=== PATIENT | female | born 1965 | race Caucasian/White ===

== ENCOUNTER 2017-02-17 09:43 | Inpatient (IN) | payer BC ==
[~2017-02-17] VITALS: Ht 162.6 cm; Wt 69.7 kg
[2017-02-17] VITALS (26 sets, daily range): BP systolic 110–137; BP diastolic 54–77; PULSE 67–106; RESP 15–22; Ht 162.6 cm; Wt 69.7 kg
[2017-02-17] MEDS ORDERED: CYCL-319 PO (10:23)
[2017-02-17] MEDS ORDERED: RABE20TA27 PO (10:23)
[2017-02-17] MEDS ORDERED: HYDR-902 PO (10:24)
[2017-02-17] MEDS ORDERED: DOCU100T PO (10:24)
[2017-02-17] MEDS ORDERED: LACTATED RINGER'S 1,000 ML IV* SCH (11:00)
[2017-02-17] MEDS ORDERED: CEFAZOLIN 2 GM/50 ML (PMX) 50 ML IVPB ONE (11:00)
[2017-02-17] MEDS ORDERED: ONDANSETRON 4 MG INJ ONE (11:52)
[2017-02-17] MEDS ORDERED: NEOSTIGMINE 3 MG/3 ML SYRINGE ONE (11:52)
[2017-02-17] MEDS ORDERED: CEFAZOLIN 1 GM INJ ONE (11:52)
[2017-02-17] MEDS ORDERED: GLYCOPYRROLATE 0.4 MG INJ ONE (11:52)
[2017-02-17] MEDS ORDERED: MIDAZOLAM 1 MG/ML 2 ML INJ ONE (11:52)
[2017-02-17] MEDS ORDERED: PROPOFOL 20 ML ONE (11:52)
[2017-02-17] MEDS ORDERED: FENTAnyl 50 MCG/ML VIAL ONE (11:52)
[2017-02-17] MEDS ORDERED: ROCURONIUM 50 MG INJ ONE (11:52)
[2017-02-17] MEDS ORDERED: DEXAMETHASONE 4 MG/ML 1 ML INJ ONE (11:53)
[2017-02-17] MEDS: D5W-0.45 NACL + KCL 20 MEQ 1,000 ML IV SCH ×2 (11:58→20:45)
--- NOTE | 2017-02-17 11:58 | HPN ---
Date/Time of Note Date/Time of Note DATE: 02/17/17 TIME: 11:58 Interval H&P Admission Note Pt. seen H&P reviewed: No system changes VERA TARIQ PA-C Feb 17, 2017 11:58
[2017-02-17] MEDS ORDERED: DIPHENHYDRAMINE 50 MG INJ IV PRN ×3 (12:00→14:30)
[2017-02-17] MEDS: CEFAZOLIN 1 GM/50 ML (PMX) 50 ML IVPB SCH ×2 (12:00→20:45)
[2017-02-17] MEDS ORDERED: NALOXONE (0.4 MG/ML) INJ IV PRN (12:00)
[2017-02-17] MEDS ORDERED: ACETAMINOPHEN 325 MG TAB PO PRN (12:00)
[2017-02-17] MEDS ORDERED: AL HYDROX/MG HYDROX/SIMETH 30 ML CUP PO PRN (12:00)
[2017-02-17] MEDS ORDERED: BISACODYL 10 MG SUPP PR PRN (12:00)
[2017-02-17] MEDS ORDERED: CARISOPRODOL 350 MG TAB PO PRN (12:00)
[2017-02-17] MEDS ORDERED: HYDROmorphONE 0.5 MG/0.5 ML SYG IV PRN (12:00)
[2017-02-17] MEDS ORDERED: SUGAMMADEX SODIUM 200 MG/2 ML VIAL IV ONE ×2 (12:26→15:25)
[2017-02-17] MEDS ORDERED: SURGIFOAM POWDER 1 GM KIT ONE (13:09)
[2017-02-17] MEDS ORDERED: BUPIVACAINE 0.5%/EPI (SDV) 30 ML INJ ONE (13:09)
[2017-02-17] MEDS ORDERED: POLYMYXIN/BACITRACIN 1L IRRIG ONE (13:10)
[2017-02-17] MEDS ORDERED: THROMBIN 5000 UNIT VIAL ONE (13:10)
[2017-02-17] MEDS ORDERED: TRIMETHOBENZAMIDE 100 MG/ML VIAL IM PRN ×2 (14:30)
[2017-02-17] MEDS ORDERED: HYDROmorphONE (0.2 MG/ML) 10ML SYG IV PRN ×5 (14:30)
[2017-02-17] MEDS ORDERED: IPRATROPIUM (NEB) 0.5 MG/2.5 ML AMP HHN PRN ×2 (14:30)
[2017-02-17] MEDS ORDERED: FENTAnyl 50 MCG/ML VIAL IV PRN ×6 (14:30)
[2017-02-17] MEDS ORDERED: OXYCODONE/ACETAMINOPHEN (5/325) TAB PO PRN ×4 (14:30)
[2017-02-17] MEDS ORDERED: LABETALOL HCL 20MG INJ IV PRN ×2 (14:30)
[2017-02-17] MEDS ORDERED: hydrALAzine 20 MG INJ IV PRN ×2 (14:30)
[2017-02-17] MEDS ORDERED: MEPERIDINE 25 MG INJ IV PRN ×2 (14:30)
[2017-02-17] MEDS ORDERED: EPHEDrine SULFATE 50 MG/5 ML SYG IV PRN ×2 (14:30)
[2017-02-17] MEDS ORDERED: MIDAZOLAM 1 MG/ML 2 ML INJ IV PRN ×2 (14:30)
[2017-02-17] MEDS ORDERED: ALBUTEROL 0.083% (NEB) 2.5 MG/3 ML AMP HHN PRN ×2 (14:30)
[2017-02-17] MEDS ORDERED: ONDANSETRON 4 MG INJ IV PRN ×2 (14:30)
--- NOTE | 2017-02-17 15:43 | SIPON ---
Date/Time of Note Date/Time of Note DATE: 02/17/17 TIME: 15:42 Operative Report Preoperative Diagnosis Cervical stenosis Postoperative Diagnosis Cervical stenosis Operation/Procedure Performed Cervical fusion Surgeon see signature line podiatrist assistant Shayla Wills Anesthesia: general Estimated blood loss: 10 - 50 ml's Transfusion Required none Specimen Disc Grafts/Implants Plate and cage Complications none JUANI SPRINGER MD Feb 17, 2017 15:43
[2017-02-17] MEDS ORDERED: MIDAZOLAM 1 MG/ML 2 ML INJ IV ONE (16:00)
[2017-02-17] MEDS: HYDROmorphONE (0.2 MG/ML) 10ML SYG IV PRN ×3 (16:01→16:18)
[2017-02-17] MEDS: ONDANSETRON 4 MG INJ IV PRN (16:02)
[2017-02-17] MEDS: HYDROmorphONE 0.2 MG/ML PCA IV SCH (16:11)
--- NOTE | 2017-02-17 16:47 | OPR ---
DATE OF OPERATION: 02/17/2017 PREOPERATIVE DIAGNOSES: C5 to 6, C6 to 7 cervical disk disease and stenosis with radiculopathy POSTOPERATIVE DIAGNOSES: C5 to 6, C6 to 7 cervical disk disease and stenosis with radiculopathy. PROCEDURE: 1. Anterior cervical diskectomy and spinal cord decompression at C5 to 6, C6 to 7. 2. Anterior cervical fusion at C5 to 6, C6 to 7. 3. Placement of intervertebral biomechanical device at C5 to 6 and C6 to 7. 4. Anterior hardware at C5, C6, C7. 5. Use of allograft. 6. Intraoperative neuromonitoring (1.5 hours). 7. Use of operative microscope. 8. Use of C-arm fluoroscopy with interpretation without radiologist present. IMPLANTS: 1. NeuroStructure transom plate with 12 mm screws. 2. NeuroStructure Cavetto fusion 5 x 16.5 x 14 mm x2. 3. Fibergraft matrix. PRIMARY SURGEON: Spenser Landeros MD WINDOW INSTALLER: Shayla Wills PA-C NEED FOR WASHCOAT WIPER: During this spinal surgical procedure, my sales operations assistant was used to retrac t and protect the spinal nerves and dural sac. My sales operations assistant also employed the suction catheters to evacuate blood from the surgical field to improve visualization of the neural structures. The manda tant was medically necessary to facilitate the completion of the surgery in a safe and expeditious m luda. State of [place] regulations, as well as hospital bylaws, preclude the use of non-license d health care personnel, such as operating room technicians, to perform these functions. FINDINGS: Neuromonitoring at the start of the case revealed bilateral C5 amplitude down 30%, right C6 amplitude down 40%, bilateral C7 amplitude down 70%. At the end of the case, nerve signals retur andrews to normal. The patient had stenosis at C5 to 6 and C6 to 7. ESTIMATED BLOOD LOSS: Less than 40 mL. DRAINS: None. SPECIMENS: C5 to 6 and C6 to 7. COMPLICATIONS OF PROCEDURES: None. ANESTHESIOLOGIST: Maikel Haley MD TYPE OF ANESTHESIA: General. INDICATIONS FOR PROCEDURE: This is a 51-year-old female with cervical radiculopathy in the setting of cervical disk disease and stenosis. She has failed nonoperative measures, therefore, I recommend ed proceeding with the above-mentioned surgery. Preoperatively, we discussed the risks, benefits an d alternatives. She understood and wished to proceed. DESCRIPTION OF PROCEDURE IN DETAIL: The patient was identified in the preoperative holding area, nany Jimenez [facility], taken to the operating room, where she was successfully placed under general a nesthesia. Neuromonitoring leads were placed, sequential compressive devices were applied. Nagel c atheter was introduced. Neuromonitoring was utilized during the procedure for 1.5 hours to include SSEP, MEP and EMG. This was performed by inDinero. Start time was 2:00 p.m. Closure time was 3:30 p.m. The patient was placed on the operative table in supine position. Towel rolls were p laced. Arms were tucked. Neck was extended and neck was prepped, draped in usual sterile fashion. Left sided neck incision was made. The skin was incised. The platysma was incised in line with th e skin incision. I then identified an interval between the sternocleidomastoid and strap muscles an d identified the anterior spine. I then placed bent spinal needles into the disk space and took a l ateral film to confirm the correct levels. Once this was confirmed, microscope was brought in. I s ubperiosteally dissected the longus colli musculature. Self-retaining retractors were then placed. A radical diskectomy was then performed at C5 to 6 and C6 to 7 using curettes, Kerrison punches, pi tuitary rongeurs and a high-speed bur. I decompressed the spinal cord and neural foramina bilateral ly at C5 to 6 and C6 to 7. I then placed various trials and chose appropriate graft height. I then took the nitinol cage within which I placed allograft and I impacted an intervertebral biomechanica l device into the C5 to 6 and another one at C6 to 7 to complete the anterior cervical fusion at bot h levels. I then placed anterior cervical plate spanning from C5 to C7 with 12 mm screws. Once thi s was all in, I took final AP and lateral images. I was happy with the placement of the hardware an d the alignment of the spine. The wound was then irrigated. Hemostasis was achieved with bipolar c autery and Surgifoam. The wound was dry and therefore, I elected not to place a drain. Microscope was taken off the field. I closed the wound in layers. I closed the platysma with a running 2-0 Vi cryl stitch. I then closed subcutaneous tissue with a 3-0 Vicryl stitch. Dermabond was then applie d. The patient was then awakened from anesthesia and taken to recovery in stable condition. At the end of the case, all nerve signals returned to normal. The patient will be admitted [facility] for routine postoperative care to include pain c ontrol, neurovascular checks, antibiotics and physical therapy. Dictated By: SPENSER SAINI/GERMAN Conf#: [id number] DID#: [id number]
--- NOTE | 2017-02-17 18:20 | RADRPT ---
PROCEDURE: Intraoperative fluoroscopy. CLINICAL INDICATION: Intraoperative fluoroscopy. COMPARISON: None relevant listed. TECHNIQUE: Intraoperative fluoroscopy of the cervical spine was performed. Fluoroscopy time: 18 seconds # Series / Images: 6 FINDINGS: Intraoperative fluoroscopy was provided for surgical planning and support purposes. Expected intraop erative findings related to anterior cervical discectomy and fusion of C5-C6 and C6-C7. IMPRESSION: 1. Intraoperative fluoroscopy was provided for surgical planning and support purposes. 2. Anterior cervical discectomy and fusion of C5-C6 and C6-C7. RPTAT: PP Physician Mara Date Time Electronically viewed and signed by Physician Mara on 02/17/2017 18:20 LG/
--- NOTE | 2017-02-17 19:01 | CONS ---
DATE OF ADMISSION: 02/17/2017 DATE OF CONSULTATION: POSTOPERATIVE MEDICAL CONSULTATIVE NOTE Thank you very much for allowing me to evaluate the above patient who is now status post anterior ce rvical neck surgery. 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 Because of the latter, she felt ultimately that howard gical intervention was warranted, as you did. Postoperatively, she notes some neck pain. Denies he adache, pathologic visual symptoms, nausea, vomiting or abdominal pain. PAST MEDICAL HISTORY: Includes: 1. Iron deficiency anemia. 2. History of migraine headaches. 3. History of acid reflux. MEDICATIONS: Include: 1. Aciphex 20 mg per day. 2. Zomig 5 mg as needed p.r.n. for headache. 3. Lorimor. ALLERGIES: NONE. PRIOR SURGERIES: None. 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 , does not smoke. PHYSICAL EXAMINATION: GENERAL: Lethargic female in no acute distress. VITAL SIGNS: BP 122/80, pulse 70, respirations 20. She was afebrile. EYES: Extraocular muscles were full. NOSE AND MOUTH: Normal. NECK: Revealed an incision anteriorly present without drainage. LUNGS: Clear. HEART: Rhythm regular. No murmur. No third or fourth sound. ABDOMEN: Nontender. Liver and spleen were not palpable. No masses or tenderness were noted. EXTREMITIES: No edema. Calves nontender. IMPRESSION: 1. Stable postoperative cervical spine surgery. 2. History of gastroesophageal reflux disease. Will continue proton pump inhibitor. 3. History of migraine headaches. This will be observed during hospitalization and Zomig or equiva lent to be provided if indeed needed. Dictated By: JOSHUA MELGOZA MD MR/NTS Conf#: [id number] DID#: [id number] CC: JUANI SPRINGER MD;*EndCC*
[2017-02-17] MEDS ORDERED: PANTOPRAZOLE (EC) 40 MG TAB PO SCH (21:00)
[2017-02-17 21:28] LABS: ADD UMIC NO; UR ASCORBIC ACID NEGATIVE (NEGATIVE); UR BILIRUBIN (Dip) NEGATIVE (NEGATIVE); UR BLOOD (Dip) NEGATIVE (NEGATIVE); UR CLARITY CLEAR (CLEAR); UR COLOR YELLOW (YELLOW); UR GLUCOSE (Dip) NEGATIVE (NEGATIVE); UR KETONES (Dip) TRACE mg/dL (NEGATIVE); UR LEUKOCYTE ESTERASE (Dip) NEGATIVE Leu/ul (NEGATIVE); UR NITRITE (Dip) NEGATIVE (NEGATIVE); UR SPECIFIC GRAVITY (Dip) 1.017 (1.003-1.030); UR TOTAL PROTEIN (Dip) NEGATIVE (NEGATIVE); UR UROBILINOGEN (Dip) NEGATIVE (NEGATIVE)
[2017-02-18] MEDS: HYDROmorphONE 0.2 MG/ML PCA IV SCH (02:17)
[2017-02-18] MEDS: ONDANSETRON 4 MG INJ IV PRN ×3 (02:25→13:21)
[2017-02-18 02:56] VITALS: BP 107/65
[2017-02-18] MEDS: CEFAZOLIN 1 GM/50 ML (PMX) 50 ML IVPB SCH (03:09)
[2017-02-18 05:24] LABS: BASOPHILS % 0.1 % (0.0-2.0); HEMATOCRIT 36.6 % (37.0-47.0); HEMOGLOBIN 12.1 g/dl (12.0-16.0); LYMPHOCYTES % 6.4 % (15.0-51.0); MEAN CORPUSCULAR HEMOGLOBIN 32.2 pg (29.0-33.0); MEAN CORPUSCULAR HGB CONC 33.1 g/dl (32.0-37.0); MEAN CORPUSCULAR VOLUME 97.3 fl (82.0-101.0); MEAN PLATELET VOLUME 12.3 fl (7.4-10.4); MONOCYTE # 1.1 10^3/ul (0.3-0.9); NEUTROPHIL # 13.3 10^3/ul (1.6-7.5); NEUTROPHILS % 86.1 % (39.0-77.0); PLATELET COUNT 167 10^3/UL (140-415); RED BLOOD COUNT 3.76 10^6/ul (4.20-5.40); RED CELL DISTRIBUTION WIDTH 11.4 % (11.5-14.5); WHITE BLOOD COUNT 15.4 10^3/ul (4.8-10.8)
[2017-02-18 05:41] VITALS: BP 137/61; PULSE 60; RESP 18
[2017-02-18 06:06] LABS: CALCIUM 8.8 mg/dl (8.4-10.2); CREATININE 0.72 mg/dl (0.44-1.00); MAGNESIUM 1.6 mg/dl (1.7-2.5); POTASSIUM 4.2 mmol/L (3.5-5.1)
[2017-02-18] MEDS: D5W-0.45 NACL + KCL 20 MEQ 1,000 ML IV SCH ×2 (07:58→17:58)
--- NOTE | 2017-02-18 08:00 | CONS ---
Date/Time of Note Date/Time of Note DATE: 02/18/17 TIME: 07:58 Assessment/Plan Assessment/Plan Additional Assessment/Plan 1. Post op cx spine surgery, stable 2. Nausea and vomiting likely sec to anesthesia and pain meds. 3. LERMA location and character not typical of her "migraine lerma", can obseve and rx prn with pain meds 4. Low mag, will replete Consultation Date/Type/Reason Admit Date/Time Feb 17, 2017 at 09:43 Initial Consult Date Detailed Summary Cardiovascular: No chest pain, No orthopenea, No palpitations Gastrointestinal: nausea, vomiting, No pain Genitourinary: other (toney in place) Neurologic: headache (primarily frontal area and back of neck without path vis sxs) Exam/Review of Systems Vital Signs Vitals Vital Signs Date Time Temp Pulse Resp B/P Pulse Ox O2 Delivery O2 Flow Rate FiO2 02/18/17 05:49 18 02/18/17 05:41 98.3 60 137/61 99 Nasal Cannula 2.0 Intake and Output 02/17/17 02/17/17 02/18/17 14:59 22:59 06:59 Intake Total 800 ml 2550 ml Output Total 220 ml 2000 ml Balance 580 ml 550 ml Exam Neck: No jvd Respiratory: clear to auscultation Cardiovascular: regular rate and rhythm Gastrointestinal: soft Neurological: No focal weakness Results Result Diagram: 02/18/170 02/18/17 0440 Results 24 hrs Laboratory Tests Test 02/17/17 15:50 02/18/17 04:40 02/18/17 06:23 Urine Color YELLOW Urine Clarity CLEAR Urine pH 5.0 Urine Specific [place] 1.017 Urine Ketones TRACE A Urine Nitrite NEGATIVE Urine Bilirubin NEGATIVE Urine Urobilinogen NEGATIVE Urine Leukocyte Esterase NEGATIVE Urine Hemoglobin NEGATIVE Urine Glucose NEGATIVE Urine Total Protein NEGATIVE White Blood Count 15.4 H Red Blood Count 3.76 L Hemoglobin 12.1 Hematocrit 36.6 L Mean Corpuscular Volume 97.3 Mean Corpuscular Hemoglobin 32.2 Mean Corpuscular Hemoglobin Concent 33.1 Red Cell Distribution Width 11.4 L Platelet Count 167 Mean Platelet Volume 12.3 H Neutrophils % 86.1 H Lymphocytes % 6.4 L Monocytes % 7.0 Eosinophils % 0.0 Basophils % 0.1 Nucleated Red Blood Cells % 0.0 Neutrophils # 13.3 H Lymphocytes # 1.0 Monocytes # 1.1 H Eosinophils # 0.0 Basophils # 0.0 Nucleated Red Blood Cells # 0.0 Sodium Level 140 Potassium Level 4.2 Chloride Level 105 Carbon Dioxide Level 24 Anion Gap 15 Blood Urea Nitrogen 8 Creatinine 0.72 Glucose Level 162 Calcium Level 8.8 Magnesium Level 1.6 L Lab Scanned Report LAB Medications Medications Current Medications Potassium Chloride/Dextrose/ Sod Cl (D5-1/2ns + KCl 20 Meq) 1,000 ml @ 100 mls/ hr Q10H IV Last administered on 02/17/17 20:45; Admin Dose 100 MLS/HR; Start 02/17/17 at 11:58 Acetaminophen/ Hydrocodone Bitart ([place] (10/325)) 1 tab Q4H PRN PO PAIN LEVEL 1-5; Start 02/18/17 at 09:30 Acetaminophen/ Hydrocodone Bitart ([place] (10/325)) 2 tab Q4H PRN PO PAIN LEVEL 6-10; Start 02/18/17 at 09:30 Hydromorphone HCl (Dilaudid) 0.2 mg Q1H PRN IV BREAKTHROUGH PAIN; Start at 12:00 Ondansetron HCl (Zofran Inj) 4 mg Q6H PRN IV NAUSEA AND/OR VOMITING Last administered on 02/18/17 02:25; Admin Dose 4 MG; Start 02/17/17 at 12:00 Bisacodyl (Dulcolax Supp) 10 mg DAILY PRN [place] CONSTIPATION; Start 02/17/17 at 12:00 Docusate Sodium (Colace) 100 mg BID PO ; Start 02/18/17 at 09:00 Al Hydrox/Mg Hydrox/Simethicone (Mag-Al Plus) 15 ml Q6H PRN PO CONSTIPATION/ DYSPEPSIA; Start 02/17/17 at 12:00 Acetaminophen (Tylenol Tab) 650 mg Q4H PRN PO LERMA OR TEMP GREATER THAN 101.3F; Start 02/17/17 at 12:00 Carisoprodol (Soma) 350 mg TID PRN PO MUSCLE SPASMS; Start 02/17/17 at 12:00 Phenol (Cepastat Lozenge) 1 lozenge PRN PRN MT SORE THROAT; Start 02/17/17 at 12:00 Diphenhydramine HCl (Benadryl) 25 mg Q6H PRN IV ITCHING; Start 02/17/17 at 12: 00 Naloxone HCl (Narcan) 0.2 mg Q2M PRN IV RR 8 BREATHS/MIN OR LESS; Start at 12:00 Hydromorphone HCl (Dilaudid HUMAN RESOURCES DIRECTOR) HUMAN RESOURCES DIRECTOR to be started in PACU Q4PCA IV Last administered on 02/18/17 02:17; Admin Dose 6 MG; Start 02/17/17 at 12:00; Stop 02/18/17 at 10:00 Miscellaneous Information 1. Hold HUMAN RESOURCES DIRECTOR at 1,000... HUMAN RESOURCES DIRECTOR IV ; Start 02/17/17 at 12 :00 Pantoprazole (Protonix Tab) 40 mg HS PO Last administered on 02/17/17 20:46; Admin Dose 40 MG; Start 02/17/17 at 21:00 JOSHUA MELGOZA MD Feb 18, 2017 08:00
[2017-02-18] MEDS: CEPASTAT LOZENGE MT PRN ×2 (08:06→17:08)
[2017-02-18 08:15] LABS: ALANINE AMINOTRANSFERASE 41 IU/L (13-69); ALKALINE PHOSPHATASE 46 IU/L (42-121); ASPARTATE AMINO TRANSFERASE 29 IU/L (15-46); BILIRUBIN,INDIRECT 0.1 mg/dl (0-1.1); BILIRUBIN,TOTAL 0.1 mg/dl (0.2-1.3); TOTAL PROTEIN 6.8 g/dl (6.1-8.1)
[2017-02-18 08:16] LABS: AMYLASE < 30 U/L (11-123)
[2017-02-18 08:21] VITALS: BP 127/60; RESP 18
[2017-02-18] MEDS ORDERED: MAGNESIUM SULFATE 3 GM in DEXTROSE 5% 100 ML IVPB ONE (09:00)
[2017-02-18] MEDS ORDERED: HYDROCODONE/APAP (10/325) TAB PO PRN (09:30)
[2017-02-18] MEDS: DOCUSATE SODIUM 100 MG CAP PO SCH ×2 (09:54→20:40)
[2017-02-18] MEDS: HYDROCODONE/APAP (10/325) TAB PO PRN ×2 (13:09→17:06)
[2017-02-18 14:00] VITALS: BP 147/67; RESP 18
[2017-02-18] MEDS ORDERED: SUMATRIPTAN 50 MG TAB PO ONE (15:00)
[2017-02-18] MEDS: PANTOPRAZOLE 40 MG INJ IV SCH (17:36)
[2017-02-18] MEDS ORDERED: SUMATRIPTAN 50 MG TAB PO SCH (20:00)
[2017-02-18 20:20] VITALS: BP 126/64; RESP 20
[2017-02-18] MEDS: ZOLPIDEM 5 MG TAB PO PRN (20:40)
[2017-02-19 02:33] VITALS: BP 109/66; RESP 19
[2017-02-19] MEDS: D5W-0.45 NACL + KCL 20 MEQ 1,000 ML IV SCH ×2 (03:58→05:15)
[2017-02-19] MEDS: DOCUSATE SODIUM 100 MG CAP PO SCH (05:15)
[2017-02-19] MEDS: PANTOPRAZOLE 40 MG INJ IV SCH ×2 (05:15→11:31)
[2017-02-19 05:46] LABS: BASOPHILS % 0.2 % (0.0-2.0); HEMATOCRIT 35.3 % (37.0-47.0); HEMOGLOBIN 12.2 g/dl (12.0-16.0); LYMPHOCYTES # 2.4 10^3/ul (0.8-2.9); LYMPHOCYTES % 23.6 % (15.0-51.0); MEAN CORPUSCULAR HEMOGLOBIN 32.8 pg (29.0-33.0); MEAN CORPUSCULAR HGB CONC 34.6 g/dl (32.0-37.0); MEAN CORPUSCULAR VOLUME 94.9 fl (82.0-101.0); MEAN PLATELET VOLUME 12.5 fl (7.4-10.4); MONOCYTE # 1.2 10^3/ul (0.3-0.9); MONOCYTES % 11.4 % (0.0-11.0); NEUTROPHIL # 6.6 10^3/ul (1.6-7.5); NEUTROPHILS % 64.6 % (39.0-77.0); PLATELET COUNT 165 10^3/UL (140-415); RED BLOOD COUNT 3.72 10^6/ul (4.20-5.40); RED CELL DISTRIBUTION WIDTH 11.6 % (11.5-14.5); WHITE BLOOD COUNT 10.2 10^3/ul (4.8-10.8)
[2017-02-19] MEDS: ZOLPIDEM 5 MG TAB PO PRN (06:00)
[2017-02-19 06:13] LABS: CALCIUM 9.6 mg/dl (8.4-10.2); CREATININE 0.76 mg/dl (0.44-1.00); MAGNESIUM 2.4 mg/dl (1.7-2.5); POTASSIUM 4.2 mmol/L (3.5-5.1)
[2017-02-19 07:38] VITALS: BP 121/60; RESP 20
--- NOTE | 2017-02-19 08:08 | CONS ---
Date/Time of Note Date/Time of Note DATE: 02/19/17 TIME: 08:06 Assessment/Plan Assessment/Plan Additional Assessment/Plan 1. Doing quite well post op cx laminectomy. 2. GERD, quiescent 3. Inc WBC resolved, sec to periop steroids 4. Can dc if ok with PT and ortho 5. Labs rev Consultation Date/Type/Reason Admit Date/Time Feb 17, 2017 at 09:43 Detailed Summary Respiratory: No cough, No shortness of breath Cardiovascular: No chest pain Gastrointestinal: no complaints Genitourinary: no complaints Musculoskeletal: neck pain (is mild) Exam/Review of Systems Vital Signs Vitals Vital Signs Date Time Temp Pulse Resp B/P Pulse Ox O2 Delivery O2 Flow Rate FiO2 02/19/17 07:38 97.7 80 20 121/60 96 02/18/17 05:41 Nasal Cannula 2.0 Intake and Output 02/18/17 02/18/17 02/19/17 15:00 23:00 07:00 Intake Total 206 ml 600 ml 1500 ml Output Total 600 ml Balance 206 ml 0 ml 1500 ml Exam Neck: other (collar in place) Respiratory: clear to auscultation Cardiovascular: regular rate and rhythm Gastrointestinal: soft Extremities: No edema (and no calf tend) Results Result Diagram: 02/19/17 0433 02/19/17 0433 Results 24 hrs Laboratory Tests Test 02/19/17 04:33 White Blood Count 10.2 # Red Blood Count 3.72 L Hemoglobin 12.2 Hematocrit 35.3 L Mean Corpuscular Volume 94.9 Mean Corpuscular Hemoglobin 32.8 Mean Corpuscular Hemoglobin Concent 34.6 Red Cell Distribution Width 11.6 Platelet Count 165 Mean Platelet Volume 12.5 H Neutrophils % 64.6 Lymphocytes % 23.6 Monocytes % 11.4 H Eosinophils % 0.0 Basophils % 0.2 Nucleated Red Blood Cells % 0.0 Neutrophils # 6.6 Lymphocytes # 2.4 Monocytes # 1.2 H Eosinophils # 0.0 Basophils # 0.0 Nucleated Red Blood Cells # 0.0 Sodium Level 146 H Potassium Level 4.2 Chloride Level 111 H Carbon Dioxide Level 29 Anion Gap 10 # Blood Urea Nitrogen 7 Creatinine 0.76 Glucose Level 112 # Calcium Level 9.6 Phosphorus Level 2.4 L Magnesium Level 2.4 Medications Medications Current Medications Potassium Chloride/Dextrose/ Sod Cl (D5-1/2ns + KCl 20 Meq) 1,000 ml @ 100 mls/ hr Q10H IV Last administered on 02/19/17 05:15; Admin Dose 100 MLS/HR; Start 02/17/17 at 11:58 Acetaminophen/ Hydrocodone Bitart ([place] (10/325)) 1 tab Q4H PRN PO PAIN LEVEL 1-5 Last administered on 02/19/17 06:00; Admin Dose 1 TAB; Start 02/18/17 at 09:30 Acetaminophen/ Hydrocodone Bitart ([place] (10/325)) 2 tab Q4H PRN PO PAIN LEVEL 6-10 Last administered on 02/18/17 17:06; Admin Dose 2 TAB; Start 02/18/17 at 09:30 Hydromorphone HCl (Dilaudid) 0.2 mg Q1H PRN IV BREAKTHROUGH PAIN; Start at 12:00 Ondansetron HCl (Zofran Inj) 4 mg Q6H PRN IV NAUSEA AND/OR VOMITING Last administered on 02/18/17 13:21; Admin Dose 4 MG; Start 02/17/17 at 12:00 Bisacodyl (Dulcolax Supp) 10 mg DAILY PRN [place] CONSTIPATION; Start 02/17/17 at 12:00 Docusate Sodium (Colace) 100 mg BID PO Last administered on 02/19/17 05:15; Admin Dose 100 MG; Start 02/18/17 at 09:00 Al Hydrox/Mg Hydrox/Simethicone (Mag-Al Plus) 15 ml Q6H PRN PO CONSTIPATION/ DYSPEPSIA; Start 02/17/17 at 12:00 Acetaminophen (Tylenol Tab) 650 mg Q4H PRN PO LERMA OR TEMP GREATER THAN 101.3F; Start 02/17/17 at 12:00 Carisoprodol (Soma) 350 mg TID PRN PO MUSCLE SPASMS; Start 02/17/17 at 12:00 Phenol (Cepastat Lozenge) 1 lozenge PRN PRN MT SORE THROAT Last administered on 02/18/17 17:08; Admin Dose 1 LOZENGE; Start 02/17/17 at 12:00 Diphenhydramine HCl (Benadryl) 25 mg Q6H PRN IV ITCHING; Start 02/17/17 at 12: 00 Naloxone HCl (Narcan) 0.2 mg Q2M PRN IV RR 8 BREATHS/MIN OR LESS; Start at 12:00 Miscellaneous Information 1. Hold PROGRAM PRODUCTION SPECIALIST at 1,000... PROGRAM PRODUCTION SPECIALIST IV ; Start 02/17/17 at 12 :00 Pantoprazole (Protonix Iv) 40 mg BID@06,18 IV Last administered on 02/19/17t 05:15; Admin Dose 40 MG; Start 02/18/17 at 18:00 JOSHUA MELGOZA MD Feb 19, 2017 08:08
[2017-02-19] MEDS ORDERED: SUMATRIPTAN 50 MG TAB PO STA (09:52)
--- NOTE | 2017-02-19 10:57 | PN ---
Date/Time of Note Date/Time of Note DATE: 02/19/17 TIME: 10:56 Assessment/Plan Lines/Catheters IV Catheter Type (from Nrs): Peripheral IV Nagel in Place (from Nrs): Yes Assessment/Plan Assessment/Plan s/p cervical fusion NS bolus 500cc caffeine please contact me if patient wishes to go home today Subjective 24 Hr Interval Summary c/o LERMA Exam/Review of Systems Vital Signs Vitals Vital Signs Date Time Temp Pulse Resp B/P Pulse Ox O2 Delivery O2 Flow Rate FiO2 02/19/17 07:38 97.7 80 20 121/60 96 02/18/17 05:41 Nasal Cannula 2.0 Intake and Output 02/18/17 02/18/17 02/19/17 15:00 23:00 07:00 Intake Total 206 ml 600 ml 1500 ml Output Total 600 ml Balance 206 ml 0 ml 1500 ml Exam Free Text/Dictation NVID, incision C/D/I Results Result Diagram: 02/19/17 0433 02/19/17 0433 VERA TARIQ PA-C Feb 19, 2017 10:57
[2017-02-19] MEDS ORDERED: SOD CHLORIDE 0.9% 500 ML IV ONE (11:00)
[2017-02-19] MEDS ORDERED: traMADol 50 MG TAB PO PRN (12:00)
[2017-02-19] MEDS ORDERED: CAFFEINE 200 MG TABLET PO SCH (12:00)
--- NOTE | 2017-02-20 07:34 | DS ---
Date/Time of Note Date/Time of Note DATE: 02/20/17 TIME: 07:33 Discharge Summary Admission/Discharge Info Admit Date/Time Feb 17, 2017 at 09:43 Discharge Date/Time Feb 19, 2017 at 14:17 Discharge Diagnosis cervical stenosis Patient Condition: Good Procedures cervical fusion Hospital Course Patient [facility] after undergoing the above procedure. Postoperatively she had headaches. On postoperative day 2 we discontinued the [place] and started her on tramadol at which time she felt better and was stable for discharge. Follow-up is arranged. Home Meds Reported Medications Hydrocodone/Acetaminophen ([place] 10-325 Tablet) 1 Each Tablet, 1-2 EACH PO Q6 Y for PAIN, TAB 02/17/17 Docusate Sodium* (Dok*) 100 Mg Tablet, 100 MG PO BID Y for CONSTIPATION, #60 CAP 02/17/17 Cyclobenzaprine Hcl* (Cyclobenzaprine Hcl*) 10 Mg Tablet, 10 MG PO BID, #90 TAB 02/17/17 Rabeprazole Sodium* (Rabeprazole Sodium*) 20 Mg Tablet., 20 MG PO QPM, TAB 02/17/17 Primary Care Provider Not On Staff Doctor JUANI SPRINGER MD Feb 20, 2017 07:34
== END 2017-02-19 14:17 | disposition home or self-care (01) | DRG 473 ==
LOC: REC 09:43 → MS1 18:10
PROVIDERS: ADMIT Specialist; ATTEND Specialist
PROC: 0RB30ZZ Excision of Cervical Vertebral Disc, Open Approach (ICD-10-PCS; 2017-02-17)
PROC: 0RG20A0 Fusion of 2 or more Cervical Vertebral Joints with Interbody Fusion Device, Anterior Approach, Anterior Column, Open Approach (ICD-10-PCS; principal; 2017-02-17 12:00)
DX: M50.122 Cervical disc disorder at C5-C6 level with radiculopathy (principal); E83.42 Hypomagnesemia; M48.02 Spinal stenosis, cervical region; K21.9 Gastro-esophageal reflux disease without esophagitis
CPT/HCPCS: 72040; 80048; 80076; 81003; 82150; 83690; 83735; 84100; 85025; 86999; 87086; 97116; 97162; 97530; C1713; C9113; J0690; J1100; J1170; J2175; J2250; J2405; J2710; J3010; J3475; J3480; J7040